=== PATIENT | male | born 1975 | race Caucasian/White ===

== ENCOUNTER → 2017-12-30 | Outpatient (CLI) | payer BC ==
[2017-12-30 18:02] LABS: HEMATOCRIT 42.6 % (42.0-52.0); HEMOGLOBIN 14.3 g/dl (13.5-17.5); MEAN CORPUSCULAR HEMOGLOBIN 28.3 pg (27.0-33.0); MEAN CORPUSCULAR HGB CONC 33.6 g/dl (32.0-36.5); MEAN CORPUSCULAR VOLUME 84.4 fl (80.0-96.0); PLATELET COUNT, AUTOMATED 216 10^3/uL (150-450); RED BLOOD COUNT 5.05 10^6/uL (4.30-6.10); RED CELL DISTRIBUTION WIDTH 13.2 % (11.5-14.5); WHITE BLOOD COUNT 6.8 10^3/uL (4.0-10.0)
[2017-12-30 18:29] LABS: ALBUMIN 3.5 GM/DL (3.2-5.2); ALBUMIN/GLOBULIN RATIO 0.92 (1.00-1.93); ALKALINE PHOSPHATASE 71 U/L (45-117); ALT/SGPT 97 U/L (12-78); ANION GAP 7 MEQ/L (8-16); AST/SGOT 53 U/L (7-37); BILIRUBIN,TOTAL 0.5 MG/DL (0.2-1.0); BLOOD UREA NITROGEN 16 MG/DL (7-18); CALCIUM LEVEL 8.3 MG/DL (8.5-10.1); CARBON DIOXIDE LEVEL 28 MEQ/L (21-32); CHLORIDE LEVEL 107 MEQ/L (98-107); CREATININE FOR GFR 0.88 MG/DL (0.70-1.30); GLOMERULAR FILTRATION RATE > 60.0 (>60); GLUCOSE, FASTING 97 MG/DL (70-100); SODIUM LEVEL 142 MEQ/L (136-145); TOTAL PROTEIN 7.3 GM/DL (6.4-8.2)
[2018-01-02 00:08] LABS: Lyme Disease IgG/IgM Antibodie <0.91 ISR (0.00-0.90); Lyme Disease IgM Ab Quantitati <0.80 index (0.00-0.79)
== END ==
LOC: M LAB 16:45
DX: R53.81 Other malaise (principal)
CPT/HCPCS: 80053

== ENCOUNTER → 2020-06-12 | Outpatient (REF) | payer SELFPAY | LOC: M LABSMTC 10:21 → EDSTATUS 10:35 | PROVIDERS: ATTEND Pediatrics | DX: Z20.822 Contact with and (suspected) exposure to COVID-19 (principal) ==

== ENCOUNTER → 2020-06-13 | Outpatient (REF) | payer BC | LOC: M LAB REF 15:06 | PROVIDERS: ATTEND Physician Assistant | DX: R05 Cough (principal); R50.9 Fever, unspecified; M79.10 Myalgia, unspecified site ==

== ENCOUNTER → 2021-05-21 | Outpatient (REF) | LOC: M EMP 13:26 | PROVIDERS: ATTEND Family Medicine | DX: Z11.52 Encounter for screening for COVID-19 (principal) ==

== ENCOUNTER → 2022-02-12 | Outpatient (REF) | payer BC | LOC: M SMT 13:24 | PROVIDERS: ATTEND Urology | DX: Z30.2 Encounter for sterilization (principal) ==

== ENCOUNTER → 2022-04-18 | Outpatient (REF) | payer BC ==
[2022-04-18 08:58] LABS: SEMEN APPEARANCE OPAQUE (OPAQUE); SEMEN VOLUME 1.2 ml (2.0-5.0)
[2022-04-18 08:59] LABS: SEMEN VISCOSITY LIQUID (LIQUID); WBC CONCENTRATION <=1 M/ml (<=1 M/ml)
== END ==
LOC: M SMT 08:23
PROVIDERS: ATTEND Urology
DX: Z30.2 Encounter for sterilization (principal)

== ENCOUNTER → 2022-06-17 | Outpatient (REF) | payer BC ==
[2022-06-17 09:43] LABS: SEMEN APPEARANCE OPAQUE (OPAQUE); SEMEN VISCOSITY LIQUID (LIQUID); SEMEN VOLUME 1.5 ml (2.0-5.0)
[2022-06-17 09:44] LABS: WBC CONCENTRATION <=1 M/ml (<=1 M/ml)
== END ==
LOC: M SMT 09:08
PROVIDERS: ATTEND Urology
DX: Z98.52 Vasectomy status (principal)

== ENCOUNTER → 2024-02-03 | Outpatient (REF) ==
[~2024-02-03] MED LIST: THERTAB52 PO
== END ==
LOC: M EMP 08:46
PROVIDERS: ATTEND Family Medicine
DX: Z11.52 Encounter for screening for COVID-19 (principal)

== ENCOUNTER → 2024-02-29 | Outpatient (REF) | LOC: M EMP 08:58 | PROVIDERS: ATTEND Family Medicine | DX: Z11.52 Encounter for screening for COVID-19 (principal) ==

== ENCOUNTER → 2025-05-25 | Outpatient (REF) | LOC: M EMP 15:48 | PROVIDERS: ATTEND Family Medicine | DX: Z01.89 Encounter for other specified special examinations (principal) ==